=== PATIENT | female | born 1950 | race Caucasian/White ===

== ENCOUNTER 2016-11-03 10:40 | Outpatient (CLI) | payer OTHER | END 2016-11-03 13:04 | LOC: LAB 10:40 | PROVIDERS: ATTEND Family Medicine | DX: E03.9 Hypothyroidism, unspecified (principal); Z11.59 Encounter for screening for other viral diseases | CPT/HCPCS: 36415; 84443; 86803 ==

== ENCOUNTER 2016-11-13 08:52 | Outpatient (CLI) | payer OTHER ==
[2016-11-13 09:44] LABS: eGFR (African) > 60; eGFR (Non-African) > 60
== END 2016-11-13 08:53 ==
LOC: LAB 08:52
PROVIDERS: ATTEND Family Medicine
DX: E78.2 Mixed hyperlipidemia (principal)
CPT/HCPCS: 36415; 80053; 80061

== ENCOUNTER 2017-10-21 10:45 | Outpatient (CLI) | payer OTHER ==
[2017-10-21 11:42] LABS: eGFR (African) > 60; eGFR (Non-African) > 60
== END 2017-10-21 10:46 ==
LOC: LAB 10:45
PROVIDERS: ATTEND Family Medicine
DX: E78.2 Mixed hyperlipidemia (principal); E03.9 Hypothyroidism, unspecified
CPT/HCPCS: 36415; 80053; 80061; 84443

== ENCOUNTER 2018-08-18 08:54 | Outpatient (CLI) | payer OTHER ==
[2018-08-18 10:07] LABS: eGFR (Non-African) > 60
== END 2018-08-18 08:55 ==
LOC: LAB 08:54
PROVIDERS: ATTEND Family Medicine
DX: E78.2 Mixed hyperlipidemia (principal); E03.9 Hypothyroidism, unspecified
CPT/HCPCS: 36415; 80053; 80061; 84443